=== PATIENT | female | born 1990 | race Caucasian/White ===

== ENCOUNTER 2021-09-20 17:22 | Emergency (ER) | payer OTHER ==
[2021-09-20 17:36] VITALS: BP 120/67; PULSE 107; TEMP 98.6; BMI 23.8
== END 2021-09-21 00:30 | disposition home or self-care (01) ==
LOC: JERFT 17:22 → JER 17:22
DX: O26.892 Other specified pregnancy related conditions, second trimester (principal); R10.9 Unspecified abdominal pain; Z3A.41 41 weeks gestation of pregnancy
CPT/HCPCS: 99281-25

== ENCOUNTER 2021-09-27 15:25 | Emergency (ER) | payer OTHER ==
[2021-09-27 15:33] VITALS: BMI 24.2
[2021-09-27 16:55] VITALS: BP 126/63; PULSE 99; TEMP 98.3
== END 2021-09-27 16:55 | disposition home or self-care (01) ==
LOC: JER 15:25
DX: O30.002 Twin pregnancy, unspecified number of placenta and unspecified number of amniotic sacs, second trimester (principal); O36.8192 Decreased fetal movements, unspecified trimester, fetus 2; Z3A.21 21 weeks gestation of pregnancy
CPT/HCPCS: 99281-25

== ENCOUNTER 2022-01-05 10:00 | Inpatient (IN) | payer OTHER ==
[2022-01-05] MEDS ORDERED: ELECTROLYTE-148 SOLN 500 ML IV ONE (11:00)
[2022-01-05] MEDS ORDERED: ELECTROLYTE-148 SOLN 500 ML IV SCH (12:00)
[2022-01-05] MEDS ORDERED: BETAMET ACET/BETAMET NA PH 30 MG/5 ML VIAL ONE (12:51)
[2022-01-05] MEDS ORDERED: BETAMET ACET/BETAMET NA PH 30 MG/5 ML VIAL IM ONE (13:19)
[2022-01-05] MEDS ORDERED: DEXTROSE 5%-NORMAL SALINE 1,000 ML IV SCH (13:30)
[2022-01-05 13:44] LABS: BASO % 0.4 % (0-2.0); EOS % 0.6 % (0-4.5); HEMATOCRIT 39.6 % (32.4-45.2); HEMOGLOBIN 13.3 GM/dL (10.7-15.3); LYMPH % 24.7 % (8-40); MCH 31.2 pg (25.7-33.7); MCHC 33.5 g/dl (32.0-36.0); MEAN PLT VOLUME 10.4 fl (7.5-11.1); MONO % 5.1 % (3.8-10.2); NEUT % 69.2 % (42.8-82.8); PLATELET COUNT 184 10^3/uL (134-434); RBC 4.26 M/mm3 (3.60-5.2); RDW 14.3 % (11.6-15.6); WHITE BLOOD COUNT 7.4 K/mm3 (4.0-10.0)
[2022-01-05 13:46] VITALS: BMI 31.6
[2022-01-05 13:50] LABS: INR 0.91 (0.83-1.09); PROTHROMBIN TIME (PATIENT) 10.5 SEC (9.7-13.0)
[2022-01-05 13:53] LABS: ACTIVATED PTT 31.5 SECONDS (25.2-36.5)
[2022-01-05 13:56] LABS: CALCIUM 8.7 mg/dL (8.5-10.1)
[2022-01-05 13:57] LABS: ALBUMIN 2.4 g/dl (3.4-5.0); BLOOD UREA NITROGEN 10.6 mg/dL (7-18)
[2022-01-05 14:00] LABS: CREATININE 0.8 mg/dL (0.55-1.3)
[2022-01-05 14:02] LABS: BILIRUBIN,TOTAL 0.3 mg/dL (0.2-1); TOT PROT 6.1 g/dl (6.4-8.2)
[2022-01-05 15:47] LABS: EPI CELLS 7 /uL (0-25.1); HYALINE CASTS 1 /uL (0-3.1); PH,URINE 5.5 (5.0-8.0); URINE APPEARANCE CLEAR; URINE BACTERIA 19 /uL (0-1359); URINE BILIRUBIN NEGATIVE (NEGATIVE); URINE COLOR YELLOW; URINE GLUCOSE (UA) NEGATIVE (NEGATIVE); URINE KETONE NEGATIVE (NEGATIVE); URINE LEUK ESTERASE NEGATIVE (NEGATIVE); URINE NITRITE NEGATIVE (NEGATIVE); URINE PROTEIN NEGATIVE (NEGATIVE); URINE RBC 7 /uL (0-23.9); URINE UROBILINOGEN 0.2 mg/dL (0.2-1.0); URINE WBC 7 /uL (0-25.8)
[2022-01-05 15:54] LABS: OPIATES, URI NEGATIVE (NEGATIVE); URINE BARBITURATES NEGATIVE (NEGATIVE)
[2022-01-05 15:55] LABS: METHADONE, UR NEGATIVE (NEGATIVE); PHENCYCLIDINE,URINE NEGATIVE (NEGATIVE); URINE BENZODIAZEPINES NEGATIVE (NEGATIVE)
[2022-01-05 15:56] LABS: COCAINE, UR NEGATIVE (NEGATIVE); URINE AMPHETAMINES NEGATIVE (NEGATIVE)
[2022-01-05] MEDS ORDERED: METOCLOPRAMIDE HCL INJECTION 10 MG/2 ML VIAL IVPUSH ONE (18:00)
[2022-01-05] MEDS ORDERED: METOCLOPRAMIDE HCL INJECTION 10 MG/2 ML VIAL ONE (18:19)
[2022-01-05] MEDS ORDERED: ONDANSETRON 4 MG/2 ML VIAL IVPUSH PRN (18:59)
[2022-01-05] MEDS ORDERED: morphine SULFATE/PF 1 MG/2 ML (2cc Syringe - QUVA) ONE (19:23)
[2022-01-05] MEDS ORDERED: ceFAZolin SODIUM 1 GM VIAL ONE (19:40)
[2022-01-05] MEDS ORDERED: ONDANSETRON 4 MG/2 ML VIAL ONE (19:41)
[2022-01-05] MEDS ORDERED: OXYTOCIN 10 UNITS/ML VIAL ONE ×3 (19:46→20:09)
[2022-01-05] MEDS ORDERED: PHENYLEPHRINE HCL 10 MG/1 ML SINGLE DOSE VIAL ONE (19:51)
[2022-01-05] MEDS ORDERED: METHYLERGONOVINE MALEATE 0.2 MG/1 ML AMP IM PRN (20:12)
[2022-01-05] MEDS ORDERED: ACETAMINOPHEN 325 MG TABLET (FP) PO PRN (20:12)
[2022-01-05] MEDS: OXYTOCIN 20 UNITS in 0.9% NS 20 UNIT/1,000 ML INFUS.BAG IV SCH (20:20)
[2022-01-05 20:36] LABS: CORD BASE EXCESS -2.5 mmol/L (0-2); CORD HCO3 23.2 mmHg (20-29); CORD pH 7.349 (7.14-7.44)
[2022-01-05 20:37] LABS: CORD HCO3 23.5 mmHg (20-29); CORD PCO2 42.6 mmHg (30-78); CORD pH 7.359 (7.14-7.44)
[2022-01-05 20:39] LABS: CORD HCO3 27.5 mmHg (20-29); CORD PCO2 50.8 mmHg (30-78); CORD pH 7.352 (7.14-7.44)
[2022-01-05 20:43] LABS: CORD HCO3 28.2 mmHg (20-29); CORD PCO2 58.2 mmHg (30-78); CORD pH 7.303 (7.14-7.44)
[2022-01-05] MEDS ORDERED: CEFAZOLIN SODIUM 2 GM VIAL IVPB SCH (21:00)
[2022-01-06] MEDS: CEFAZOLIN SODIUM 2 GM in DEXTROSE 5%-WATER 100 ML IVPB SCH ×3 (01:05→17:34)
[2022-01-06] MEDS ORDERED: CEFAZOLIN SODIUM 2 GM VIAL IVPB SCH (02:00)
[2022-01-06] MEDS: IBUPROFEN 800 MG/8 ML IJ IVPB PRN ×2 (06:45→15:28)
[2022-01-06] MEDS ORDERED: oxyCODONE HCL 5 MG TABLET PO PRN (08:12)
[2022-01-06 08:33] LABS: BASO % 0.1 % (0-2.0); EOS % 0.1 % (0-4.5); HEMATOCRIT 37.7 % (32.4-45.2); HEMOGLOBIN 12.3 GM/dL (10.7-15.3); LYMPH % 15.3 % (8-40); MCHC 32.7 g/dl (32.0-36.0); MEAN CELL VOLUME 94.7 fl (80-96); MEAN PLT VOLUME 11.3 fl (7.5-11.1); MONO % 6.9 % (3.8-10.2); NEUT % 77.6 % (42.8-82.8); PLATELET COUNT 163 10^3/uL (134-434); RBC 3.98 M/mm3 (3.60-5.2); RDW 14.4 % (11.6-15.6); WHITE BLOOD COUNT 11.9 K/mm3 (4.0-10.0)
[2022-01-06] MEDS ORDERED: BISACODYL 10 MG SUPP.RECT RC PRN (20:12)
[2022-01-06] MEDS: SIMETHICONE 80 MG TAB.CHEW (FP) PO PRN (21:18)
[2022-01-06] MEDS: ENOXAPARIN NA (PORCINE) 40 MG/0.4 ML DISP.SYRIN SQ SCH (21:18)
[2022-01-06] MEDS: IBUPROFEN 600 MG TABLET (FP) PO PRN (21:19)
[2022-01-07] MEDS: OXYTOCIN 20 UNITS in 0.9% NS 20 UNIT/1,000 ML INFUS.BAG IV SCH (00:25)
[2022-01-07] MEDS: SIMETHICONE 80 MG TAB.CHEW (FP) PO PRN ×2 (06:12→11:54)
[2022-01-07] MEDS: IBUPROFEN 600 MG TABLET (FP) PO PRN ×2 (06:12→18:18)
[2022-01-07] MEDS: oxyCODONE HCL 5 MG TABLET PO PRN ×2 (08:36→15:44)
[2022-01-07 08:43] LABS: POC NITRAZINE POS
[2022-01-07] MEDS: ENOXAPARIN NA (PORCINE) 40 MG/0.4 ML DISP.SYRIN SQ SCH (11:54)
[2022-01-07 18:05] LABS: SYPHILIS W/ RPR CONF NON-REACTIVE (NONREACTIVE)
[2022-01-07 18:36] LABS: HIV INTERPRETATION NEGATIVE (NEGATIVE)
[2022-01-08] MEDS: IBUPROFEN 600 MG TABLET (FP) PO PRN (03:46)
[2022-01-08] MEDS: SIMETHICONE 80 MG TAB.CHEW (FP) PO PRN (03:46)
[2022-01-08 07:07] LABS: BASO % 0.2 % (0-2.0); EOS % 1.2 % (0-4.5); HEMATOCRIT 35.2 % (32.4-45.2); HEMOGLOBIN 11.6 GM/dL (10.7-15.3); LYMPH % 20.7 % (8-40); MCH 31.1 pg (25.7-33.7); MCHC 33.1 g/dl (32.0-36.0); MEAN CELL VOLUME 93.9 fl (80-96); MEAN PLT VOLUME 10.2 fl (7.5-11.1); MONO % 6.8 % (3.8-10.2); NEUT % 71.1 % (42.8-82.8); PLATELET COUNT 211 10^3/uL (134-434); RBC 3.75 M/mm3 (3.60-5.2); RDW 14.8 % (11.6-15.6); WHITE BLOOD COUNT 8.5 K/mm3 (4.0-10.0)
[2022-01-08] MEDS: ENOXAPARIN NA (PORCINE) 40 MG/0.4 ML DISP.SYRIN SQ SCH (11:27)
[2022-01-08 12:06] VITALS: BP 102/63; PULSE 75; TEMP 98.1
== END 2022-01-08 13:10 | disposition home or self-care (01) | DRG 540 ==
LOC: JDEL 10:00 → JLDR 12:50 → J3W 22:35
PROVIDERS: ADMIT Obstetrics & Gynecology; ATTEND Obstetrics & Gynecology
PROC: 10D00Z1 Extraction of Products of Conception, Low, Open Approach (ICD-10-PCS; principal; 2022-01-05)
DX: O30.003 Twin pregnancy, unspecified number of placenta and unspecified number of amniotic sacs, third trimester (principal); O24.420 Gestational diabetes mellitus in childbirth, diet controlled; Z37.2 Twins, both liveborn; O42.013 Preterm premature rupture of membranes, onset of labor within 24 hours of rupture, third trimester; O69.81X2 Labor and delivery complicated by cord around neck, without compression, fetus 2; Z3A.36 36 weeks gestation of pregnancy
CPT/HCPCS: 36415; 36600; 59025; 76819-TC; 80053; 80307; 81003; 82803; 83986-QW; 85025; 85610; 85730; 86762; 86780; 86850; 86900; 86901; 87340; 87389; 88307-TC; 96372; C9803-CS; U0003; U0005

== ENCOUNTER 2023-12-04 21:32 | Emergency (ER) | payer OTHER ==
[2023-12-04 21:38] VITALS: BMI 23.1
[2023-12-04 22:58] LABS: BASO % 0.5 % (0-2.0); EOS % 2.1 % (0-4.5); HEMATOCRIT 34.4 % (32.4-45.2); HEMOGLOBIN 11.1 GM/dL (10.7-15.3); LYMPH % 22.7 % (8-40); MCH 26.6 pg (25.7-33.7); MCHC 32.3 g/dl (32.0-36.0); MEAN CELL VOLUME 82.3 fl (80-96); MEAN PLT VOLUME 8.6 fl (7.5-11.1); MONO % 6.2 % (3.8-10.2); NEUT % 68.5 % (42.8-82.8); PLATELET COUNT 263 10^3/uL (134-434); RBC 4.18 M/mm3 (3.60-5.2); RDW 14.8 % (11.6-15.6); WHITE BLOOD COUNT 7.9 K/mm3 (4.0-10.0)
[2023-12-04 23:02] LABS: INR 1.07 (0.83-1.09); PROTHROMBIN TIME (PATIENT) 12.1 SEC (9.7-13.0)
[2023-12-04 23:05] LABS: ACTIVATED PTT 34.2 SECONDS (25.2-36.5)
[2023-12-04 23:11] LABS: HCG,QUALITATIVE URINE Negative
[2023-12-04 23:20] LABS: ALBUMIN 3.7 g/dl (3.4-5.0); BILIRUBIN,TOTAL 0.3 mg/dL (0.2-1); CALCIUM 8.8 mg/dL (8.5-10.1); CREATININE 0.6 mg/dL (0.55-1.3); POTASSIUM 3.4 mmol/L (3.5-5.1); TOT PROT 7.2 g/dl (6.4-8.2)
[2023-12-04 23:23] LABS: PH,URINE 5.5 (5.0-8.0); URINE APPEARANCE Turbid; URINE BILIRUBIN Negative (NEGATIVE); URINE COLOR Red; URINE GLUCOSE (UA) Negative (NEGATIVE); URINE KETONE Negative (NEGATIVE); URINE LEUK ESTERASE Negative (NEGATIVE); URINE NITRITE Negative (NEGATIVE); URINE PROTEIN 3+ (NEGATIVE); URINE UROBILINOGEN 0.2 mg/dL (0.2-1.0)
[2023-12-04 23:28] LABS: EPI CELLS 0-3 /HPF; URINE BACTERIA FEW /hpf (NEGATIVE); URINE RBC >200 /hpf (0-4); URINE WBC 0-3 (NEGATIVE)
[2023-12-05 01:59] VITALS: BP 120/70; PULSE 70; RESP 16; TEMP 97.5
== END 2023-12-05 01:59 | disposition home or self-care (01) ==
LOC: JER 21:32
DX: N93.8 Other specified abnormal uterine and vaginal bleeding (principal); R53.83 Other fatigue
CPT/HCPCS: 36415; 76830-TC; 80053; 81003; 84703; 85025; 85610; 85730; 86850; 86900; 86901; 99284-25